=== PATIENT | male | born 1965 | race Caucasian/White ===

== ENCOUNTER 2020-08-21 03:37 | Emergency (ER) | payer BC ==
[2020-08-21] MEDS ORDERED: LEVOTHYROXIN0.088 MG PO (04:14)
[2020-08-21] MEDS ORDERED: CHOLESTEROL MED (04:15)
[2020-08-21 04:42] LABS: EOS # 0.2 (0.04-0.40); EOS % 3.2 % (0.0-4.0); HEMATOCRIT 42.1 % (42.0-52.0); HEMOGLOBIN 14.6 g/dL (13.5-18.0); LYMPH# 2.7 (1.50-4.00); MEAN CELL VOLUME 92 fl (78-100); MEAN CORPUSCULAR HEMOGLOBIN 32 pg (27-31); MEAN CORPUSCULAR HGB CONC 35 g/dL (33-37); MEAN PLATELET VOLUME 9.7 fl (7.4-10.4); MONO # 0.7 (0.20-0.80); NEU # 2.9 (1.40-6.50); PLATELET COUNT 250 K/mm3 (130-400); RED BLOOD COUNT 4.58 M/mm3 (4.20-5.60); RED CELL DISTRIBUTION WIDTH 13.1 % (11.5-14.5); WHITE BLOOD COUNT 6.6 K/mm3 (4.8-10.8)
[2020-08-21 04:52] LABS: ALBUMIN 4.1 g/dL (3.5-5.0); POTASSIUM 3.8 mmol/L (3.5-5.1)
[2020-08-21 04:53] LABS: CALCIUM 8.8 mg/dL (8.3-10.5)
[2020-08-21 04:54] LABS: TOTAL PROTEIN 6.8 g/dL (6.4-8.3)
[2020-08-21 04:55] LABS: URINE APPEARANCE CLOUDY; URINE BILIRUBIN NEGATIVE (NEGATIVE); URINE BLOOD 250 ery/uL (NEGATIVE); URINE COLOR DK YELLOW; URINE GLUCOSE NEGATIVE (NEGATIVE); URINE KETONE NEGATIVE (NEGATIVE); URINE LEUKOCYTE ESTERASE NEGATIVE (NEGATIVE); URINE NITRATE NEGATIVE (NEGATIVE); URINE PROTEIN(semi-quant) 1+ mg/dL (NEGATIVE); URINE UROBILINOGEN NORMAL (NORMAL)
[2020-08-21 04:56] LABS: TOTAL BILIRUBIN 0.9 mg/dL (0.2-1.2); URINE MUCUS PRESENT (NOT PRESENT)
[2020-08-21 05:22] LABS: LIPASE 21 U/L (8-78)
[2020-08-21] MEDS ORDERED: CIPRO500 M1 PO (07:37)
[2020-08-21] MEDS ORDERED: PERCOCET 325 MG1 TA2 PO (07:37)
[2020-08-21] MEDS ORDERED: FLOMAX0.4 MG PO (07:37)
[2020-08-21] MEDS ORDERED: ONDANSETRON ODT8 MG PO (07:47)
[2020-08-21 10:26] VITALS: BP 122/73
== END 2020-08-21 10:26 | disposition home or self-care (01) ==
LOC: ED 03:37
PROVIDERS: Nurse Practitioner Family
DX: N13.2 Hydronephrosis with renal and ureteral calculous obstruction (principal); E03.9 Hypothyroidism, unspecified; Z79.890 Hormone replacement therapy
CPT/HCPCS: J1885; J2270; J2405; J7030; J7040; Q9967

== ENCOUNTER → 2023-05-25 | Outpatient (CLI) | payer BC ==
[~2023-05-25] MED LIST: CHOLESTEROL MED; CIPRO500 M1 PO; FLOMAX0.4 MG PO; LEVOTHYROXIN0.088 MG PO; ONDANSETRON ODT8 MG PO; PERCOCET 325 MG1 TA2 PO
== END ==
LOC: RAD 07:54
DX: S83.281A Other tear of lateral meniscus, current injury, right knee, initial encounter (principal); S83.241A Other tear of medial meniscus, current injury, right knee, initial encounter; M71.21 Synovial cyst of popliteal space [Baker], right knee; M25.461 Effusion, right knee; M94.261 Chondromalacia, right knee